=== PATIENT | female | born 2000 | race Asian ===

== ENCOUNTER 2023-04-19 21:02 | Emergency (ER) | payer OTHER ==
[2023-04-19 21:08] VITALS: BP 148/81; PULSE 89; RESP 18; TEMP 97.8; BMI 21.1
[2023-04-19 23:00] LABS: BASO % 0.5 % (0-2.0); EOS % 6.2 % (0-4.5); HEMOGLOBIN 13.3 GM/dL (10.7-15.3); LYMPH % 32.8 % (8-40); MCH 31.1 pg (25.7-33.7); MEAN CELL VOLUME 91.4 fl (80-96); MEAN PLT VOLUME 9.5 fl (7.5-11.1); NEUT % 51.5 % (42.8-82.8); PLATELET COUNT 226 10^3/uL (134-434); RBC 4.26 M/mm3 (3.60-5.2); RDW 13.1 % (11.6-15.6); WHITE BLOOD COUNT 10.4 K/mm3 (4.0-10.0)
[2023-04-19 23:31] LABS: POTASSIUM 3.8 mmol/L (3.5-5.1)
[2023-04-19 23:33] LABS: ALBUMIN 3.5 g/dl (3.4-5.0); BLOOD UREA NITROGEN 21.2 mg/dL (7-18); CALCIUM 9.1 mg/dL (8.5-10.1)
[2023-04-19 23:36] LABS: CREATININE 0.6 mg/dL (0.55-1.3)
[2023-04-19 23:38] LABS: BILIRUBIN,TOTAL 0.4 mg/dL (0.2-1)
[2023-04-19] MEDS: ACETAMINOPHEN 1000 MG/100 ML BAG IVPB ONE (23:47)
[2023-04-19] MEDS ORDERED: KETOROLAC TROMETHAMINE 15 MG/ML VIAL ONE (23:48)
[2023-04-19] MEDS: KETOROLAC TROMETHAMINE 15 MG/ML VIAL IVPUSH ONE (23:50)
== END 2023-04-20 00:52 | disposition home or self-care (01) ==
LOC: JER 21:02
PROC: 3E0333Z Introduction of Anti-inflammatory into Peripheral Vein, Percutaneous Approach (ICD-10-PCS; principal; 2023-04-19)
DX: R07.89 Other chest pain (principal); R51.9 Headache, unspecified; R06.02 Shortness of breath; Z20.822 Contact with and (suspected) exposure to COVID-19
CPT/HCPCS: 0241U-QW; 36415; 80053; 83735; 84703; 85025; 93005; 93010; 99284-25

== ENCOUNTER 2023-12-17 01:30 | Emergency (ER) | payer BC, OTHER ==
[2023-12-17 01:37] VITALS: BP 122/75; PULSE 81; RESP 16; TEMP 98; BMI 20.7
== END 2023-12-17 02:12 | disposition home or self-care (01) ==
LOC: JER 01:30
PROC: 09C1XZZ Extirpation of Matter from Left External Ear, External Approach (ICD-10-PCS; principal; 2023-12-17)
DX: T16.2XXA Foreign body in left ear, initial encounter (principal)
CPT/HCPCS: 69200; 99282-25

== ENCOUNTER 2024-01-20 21:30 | Emergency (ER) | payer BC ==
[2024-01-20 21:36] VITALS: BP 113/71; PULSE 88; RESP 16; TEMP 98.2; BMI 23.3
[2024-01-20 21:51] LABS: EPI CELLS 30 /uL (0-25.1); HYALINE CASTS 1 /uL (0-3.1); PH,URINE 6.5 (5.0-8.0); URINE APPEARANCE CLEAR; URINE BACTERIA 642 /uL (0-1359); URINE BILIRUBIN NEGATIVE (NEGATIVE); URINE COLOR YELLOW; URINE GLUCOSE (UA) NEGATIVE (NEGATIVE); URINE KETONE NEGATIVE (NEGATIVE); URINE LEUK ESTERASE 1+ (NEGATIVE); URINE NITRITE NEGATIVE (NEGATIVE); URINE PROTEIN NEGATIVE (NEGATIVE); URINE RBC 16 /uL (0-23.9); URINE WBC 59 /uL (0-25.8)
== END 2024-01-20 22:41 | disposition home or self-care (01) ==
LOC: JERFT 21:30
DX: Z32.01 Encounter for pregnancy test, result positive (principal)
CPT/HCPCS: 81003; 84703; 87086; 99283-25

== ENCOUNTER 2024-04-29 16:50 | Emergency (ER) | payer BC ==
[2024-04-29 16:58] VITALS: BP 127/73; PULSE 91; RESP 18; TEMP 98.1; BMI 22.3
[2024-04-29 18:12] LABS: EPI CELLS 16 /uL (0-25.1); HYALINE CASTS 0 /uL (0-3.1); PH,URINE 8.5 (5.0-8.0); URINE APPEARANCE CLEAR; URINE BACTERIA 981 /uL (0-1359); URINE BILIRUBIN NEGATIVE (NEGATIVE); URINE COLOR YELLOW; URINE GLUCOSE (UA) NEGATIVE (NEGATIVE); URINE KETONE NEGATIVE (NEGATIVE); URINE LEUK ESTERASE TRACE (NEGATIVE); URINE NITRITE NEGATIVE (NEGATIVE); URINE PROTEIN NEGATIVE (NEGATIVE); URINE RBC 22 /uL (0-23.9); URINE WBC 134 /uL (0-25.8)
[2024-04-29 18:13] LABS: HCG,QUALITATIVE URINE Negative
== END 2024-04-29 18:29 | disposition home or self-care (01) ==
LOC: JER 16:50
DX: R10.30 Lower abdominal pain, unspecified (principal); R11.0 Nausea
CPT/HCPCS: 81003; 84703; 99283-25

== ENCOUNTER 2024-07-19 20:46 | Emergency (ER) | payer OTHER, BC ==
[2024-07-19 20:56] VITALS: RESP 18; TEMP 98.6; BMI 20.5
[2024-07-19 21:31] VITALS: BP 112/60; PULSE 87
[2024-07-19] MEDS ORDERED: ACETAMINOPHEN 325 MG TABLET (FP) ONE (21:44)
[2024-07-19] MEDS: ACETAMINOPHEN 500 MG TABLET (FP) PO ONE (21:46)
== END 2024-07-19 23:00 | disposition home or self-care (01) ==
LOC: JER 20:46
DX: M54.2 Cervicalgia (principal); R51.9 Headache, unspecified; V43.52XA Car driver injured in collision with other type car in traffic accident, initial encounter; Y92.410 Unspecified street and highway as the place of occurrence of the external cause
CPT/HCPCS: 70450-TC; 72125-TC; 99284-25